=== PATIENT | female | born 1980 | race Caucasian/White ===

== ENCOUNTER 2018-05-22 07:17 | Day surgery (SDC) | payer BC, OTHER ==
[2018-05-18 16:04] VITALS: BMI 21.1
[~2018-05-22 07:17] MED LIST: LACTATED RINGERS 1,000 ML IV ONE; LACTATED RINGERS 1,000 ML IV SCH; LIDOCAINE 1% 20 ML VIAL (10MG/ML) FOR IV START INTRADERMA PRN; MIDAZOLAM (PF) 2 MG/2 ML VIAL IV PRN
[2018-05-22 08:21] VITALS: TEMP 98
[2018-05-22] MEDS ORDERED: PROPOFOL 10 MG/ML 20 ML VIAL IV ONE (08:21)
--- NOTE | 2018-05-22 08:55 | P.PCN ---
Date of Procedure: 05/22/18 Procedure(s) Performed: Procedure: Colonoscopy and biopsy. Preoperative diagnosis: Abdominal pain, change in bowel habits and family history of colon cancer in her mother. Postoperative diagnosis: 1. Isolated ulcerations in the distal terminal ileum, otherwise, exam of the colon and terminal ileum show no additional abnormalities. 2. Biopsies obtained from the terminal ileum and right colon. Preparation: HalfLytely prep. Sedation: Was provided by anesthesia. Brief clinical history: The patient is a 37-year-old female who is scheduled for this evaluation because of right upper quadrant pain and history of change in bowel habits in the form of alternating diarrhea and constipation. In addition, she has family history of colon cancer in her mother who had resection of part of her bowel around age 40. The patient had no prior colonoscopy. Procedure: With the patient on her left lateral decubitus position and after informed consent and adequate sedation, the perianal area was inspected and it did not show any fissures or fistulas. There were no masses felt on digital rectal examination. The Olympus CFH 190L video colonoscope was then inserted in the rectum in the usual fashion and advanced to the cecum. I intubated the ileocecal valve and examined the terminal ileum. There were 2 isolated ulcerations in the distal terminal ileum but no other abnormalities noted in the terminal ileum. The colon did not show any edema, erythema, friability, ulceration, exudation or spontaneous bleeding. No polyps or obvious diverticular disease with seen. I obtained biopsies from the terminal ileum and right colon then I retroflexed the endoscope in the rectum before the endoscope was withdrawn. The patient tolerated the procedure well. Plan: I summarized the findings to the patient. Will await biopsy results. I am recommending repeat colonoscopy in 5 years because of her family history. Other recommendations will depend on her course and biopsy results. She will follow-up with you as planned and I will keep you updated on her progress.
[2018-05-22 09:06] VITALS: BP 111/69; PULSE 63; RESP 16
== END 2018-05-22 10:04 | disposition home or self-care (01) ==
LOC: ORWHC2ENDO 07:17
DX: K52.9 Noninfective gastroenteritis and colitis, unspecified (principal); Z88.1 Allergy status to other antibiotic agents; Z91.040 Latex allergy status; Z80.0 Family history of malignant neoplasm of digestive organs
CPT/HCPCS: 81025; 88305; 45380; J2704

== ENCOUNTER → 2024-08-27 | Outpatient (CLI) | payer BC ==
--- NOTE | 2024-08-27 14:08 | MM ---
Reason for Exam: Screening (asymptomatic). Last mammogram was performed 10 year(s) and 11 month(s) ago. Patient History: Menarche at age 14. First Full-Term at age 23. Patient used Hormonal Contraceptives for 4 years. Paternal aunt had breast cancer, age 60. Maternal aunt had breast cancer, age 60. Risk Values: Shira 5 year model risk: 0.6%. NCI Lifetime model risk: 8.0%. Prior Study Comparison: 09/21/2013 Bilateral Diagnostic Mammogram, [facility]. 03/12/2014 Left Diagnostic Mammogram, [facility]. Tissue Density: The breasts are extremely dense, which lowers the sensitivity of mammography. Findings: Analyzed By CAD. Right breast: There is no suspicious group of microcalcifications or new suspicious mass. Left breast: There is no suspicious group of microcalcifications or new suspicious mass. Overall Assessment: Negative, BI-RAD 1 Management: Screening Mammogram of both breasts in [address] [facility] will attempt to contact patient to return for supplemental views and ultrasound if indicated. Patient should continue monthly self-breast exams. A clinical breast exam by your physician is recommended on an annual basis. This exam should not preclude additional follow-up of suspicious palpable abnormalities. Note on Shira scores and lifetime risk: 1. A Shira score greater than 3% is considered moderate risk. If this is the case, consider specialist referral to assess eligibility for a risk reducing agent. 2. If overall lifetime risk for the development of breast cancer is 20% or higher, the patient may qualify for future screening with alternating mammogram and breast MRI. [facility], , 08/27/2024 2:05 PM. Electronically signed and approved by: Eric Erickson DO
== END | disposition home or self-care (01) ==
LOC: RADMAMWWP 11:21
PROVIDERS: ATTEND Obstetrics & Gynecology
DX: Z12.31 Encounter for screening mammogram for malignant neoplasm of breast (principal); R92.343 Mammographic extreme density, bilateral breasts; Z80.3 Family history of malignant neoplasm of breast; Z92.0 Personal history of contraception
CPT/HCPCS: 77067